=== PATIENT | male | born 1950 | race Caucasian/White ===

== ENCOUNTER → 2019-08-24 10:10 | Outpatient (CLI) | payer MEDICARE, SELFPAY ==
--- NOTE | ~2019-08-24 | CT_ITS ---
EXAMINATION: CT lung screening EXAM DATE: 08/24/2019 10:25 INDICATION: Personal history of nicotine dependence. TECHNIQUE: Spiral low dose CT of the chest without contrast. Axial, coronal and sagittal images were reviewed. The dose-length product (DLP) for this examination was 153.36 mGy-cm. The exposure was t ailored according to patient size (auto mA exposure control), and iterative reconstruction (ASIR) was used as additional dose reduction technique. Comparison is made to prior examination from 06/29/2015. FINDINGS: The lungs are clear. Tracheobronchial tree is patent. There is no mediastinal, hilar o r axillary lymphadenopathy. There are no pleural or pericardial effusions. There is no pneumothor ax. Heart normal in size. There is mild coronary arterial calcification, arterial sclerosis. Uppe r abdomen is unremarkable. There is mild thoracic spondylosis without osteoblastic or osteolytic le sions identified. IMPRESSION: Lung-RADS category 1, negative (<1%chance of malignancy); recommend continued LDCT screen ing in 1 year. Reviewed, dictated and finalized at location B. IMPRESSION: Lung-RADS category 1, negative (<1%chance of malignancy); recommend continued LDCT screening in 1 year.
== END ==
PROVIDERS: PCP Family Medicine Adolescent Medicine; Visit Provider Physician Assistant
DX: Z12.2 Encounter for screening for malignant neoplasm of respiratory organs (principal); F17.210 Nicotine dependence, cigarettes, uncomplicated
CPT/HCPCS: G0297

== ENCOUNTER → 2021-10-20 11:10 | Outpatient (CLI) | payer MEDICARE, SELFPAY ==
--- NOTE | ~2021-10-20 | CT_ITS ---
EXAMINATION: CT lung screening DATE: 10/20/2021 11:24 INDICATION: Personal history of nicotine dependence, prior smoker with 75 pack year history TECHNIQUE: Computed tomography (CT) of the chest was performed without intravenous contrast. The dose -length product (DLP) was 148.58 mGy-cm. 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 COMPARISON: 08/24/2019 FINDINGS: There is mild emphysema. No suspicious pulmonary nodules are identified. The lungs are free of acute opacities. There is no pleural effusion or pneumothorax. No pathologically enlarged thoraci c lymph nodes are identified. The heart size is normal. Calcified coronary artery atherosclerosis is noted. Calcified pulmonary nodules are consistent with old granulomatous disease. Subendocardial fat deposition in the left ventricular apex and interventricular septum suggests prior myocardial infarct ion. Mild thoracic spondylosis is noted. There are healed left rib fractures IMPRESSION: 1. Lung-RADS category 1: Negative. Continue annual screening with noncontrast low-dose chest CT in 12 months. Reviewed, dictated and finalized at location A. IMPRESSION: 1. Lung-RADS category 1: Negative. Continue annual screening with noncontrast l ow-dose chest CT in 12 months.
== END ==
PROVIDERS: PCP Family Medicine Adolescent Medicine; Visit Provider Family Medicine Adolescent Medicine
DX: Z12.2 Encounter for screening for malignant neoplasm of respiratory organs (principal); Z87.891 Personal history of nicotine dependence
CPT/HCPCS: 71271

== ENCOUNTER 2022-06-17 07:56 | Outpatient (CLI) | payer MEDICARE, SELFPAY ==
--- NOTE | ~2022-06-17 | NM_ITS ---
EXAMINATION: NM trina stress w perfusion DATE: 06/17/2022 10:24 INDICATION: Dyspnea on exertion. TECHNIQUE: Rest images were obtained following intravenous administration of 10.6 mCi Tc99m tetrofosm in (Myoview). The patient was infused intravenously with Lexiscan (regadenoson). Then, 33.8 mCi Tc99m tetrofosmin (Myoview) was administered intravenously, and stress images were obtained. Data was lorena nstructed into short axis and horizontal and vertical long axis SPECT images. Gated SPECT images were also obtained. COMPARISON: Chest CT 10/20/2021 FINDINGS: There is no definite reversible or fixed perfusion abnormality to suggest ischemia or infar ction. There is no segmental wall motion abnormality. Left ventricular ejection fraction measures 5 6%. IMPRESSION: 1. No definite ischemia or infarct. 2. Normal left ventricular ejection fraction measuring 56%. Reviewed, dictated and finalized at location A. F CONTRACT OFFICER
--- NOTE | 2022-06-17 08:01 | EST_ITS ---
Patient Info Name: Juan Carlos Vazquez Age: 72 years : 1950 Gender: Male Ht: 67 in Wt: 190 lbs BSA: 2.04 m2 HR: 51 bpm BP: 131 / 79 mmHg Heart Rhythm: Sinus Rhythm Exam Date: 06/17/2022 9:37 AM Exam Location: [facility] Stress Patient Status: Outpatient Admit Date: 06/17/2022 Staff Ordering Physician: Fermín Armenta DO Attending Provider: Fermín Armenta DO Exercise Technologist: Saloni Kay CT Exercise Physician: Fermín Armenta DO Exam Type: CA stress trina w NM Study Info Indications R06.00 - Dyspnea, unspecified A regadenoson stress test was performed. Summary 1. 1. Negative lexiscan stress test for ischemic ST changes by ECG criteria. 2. 2. Stable hemodynamics throughout the test. 3. 3. Nuclear scan to follow and will be reported separately. Please correlate with it. 4. 4. Patient informed of the above results. Protocol: Lexiscan Stress ECG Details Stage: REST Duration (min): 1 min : 26 sec HR (bpm): 52 SBP (mmHg): 131 DBP (mmHg): 79 Stage: REST Duration (min): 6 min : 14 sec HR (bpm): 46 SBP (mmHg): 131 DBP (mmHg): 79 Stage: STAGE 1 Duration (min): 0 min : 59 sec HR (bpm): 67 SBP (mmHg): 119 DBP (mmHg): 76 Stage: RECOVERY Duration (min): 1 min : 0 sec HR (bpm): 92 SBP (mmHg): 119 DBP (mmHg): 76 Stage: RECOVERY Duration (min): 2 min : 0 sec HR (bpm): 93 SBP (mmHg): 119 DBP (mmHg): 76 Stage: RECOVERY Duration (min): 2 min : 55 sec HR (bpm): 86 SBP (mmHg): 122 DBP (mmHg): 63 Rest HR: 46 bpm Peak HR: 101 bpm Rest Sys BP: 131 mmHg Peak Sys BP: 122 mmHg Max Pred HR: 149 bpm % Max Pred HR: 68 % Target HR: 127 bpm Max RPP: 12,322 bpm*mmHg Termination Reason: Completed protocol Cardiac Symptoms: Shortness of breath, Chest tightness Total Time: 1 min : 0 sec Rest Toro BP: 79 mmHg Peak Toro BP: 63 mmHg Total Dose: 0.4 mg Resting ECG Sinus bradycardia, RBBB. Stress ECG No ST changes. Arrhythmias None. Report Signatures
--- NOTE | 2022-06-17 08:01 | ECHO_ITS ---
Patient Info Name: Juan Carlos Vazquez Age: 72 years : 1950 Gender: Male Ht: 67 in Wt: 190 lbs BSA: 2.04 m2 HR: 58 bpm BP: 144 / 78 mmHg Technical Quality: Good Exam Date: 06/17/2022 8:13 AM Exam Location: [facility] Pulmonary Patient Status: Outpatient Admit Date: 06/17/2022 Staff Ordering Physician: Fermín Armenta DO Concrete Conveyor Operator: Lorie Marquez RDCS Attending Provider: Fermín Armenta DO Referring Physician: Geovany GIL; Exam Type: CA echo doppler color flow Study Info Indications R06.09 - Other forms of dyspnea Complete two-dimensional, color flow and Doppler transthoracic echocardiogram is performed. Summary 1. Complete two-dimensional, color flow and Doppler transthoracic echocardiogram is performed. 2. Left ventricular chamber dimension is normal. 3. Left ventricular systolic function is normal, estimated at 55-60%. 4. There is mildly increased left ventricular wall thickness. 5. The left ventricular diastolic function is grade I diastolic dysfunction. 6. Global longitudinal strain is abnormal at -14.1%. Left Ventricle Tissue doppler is not performed. Global longitudinal strain is abnormal at -14.1%. Left ventricular chamber dimension is normal. Left ventricular systolic function is normal, estimated at 55-60%. There is mildly increased left ventricular wall thickness. The left ventricular diastolic function is grade I diastolic dysfunction. Right Ventricle Right ventricular chamber dimension is normal. Right ventricular systolic function is normal. Left Atria Left atrial chamber dimension is normal. Right Atria Right atrial chamber dimension is normal. Aortic Valve The aortic valve is trileaflet. There is no aortic valve stenosis. There is no aortic valve regurgitation. Pulmonic Valve There is no pulmonic regurgitation. Mitral Valve There is no mitral valve stenosis. There is no mitral valve regurgitation. Tricuspid Valve There is no tricuspid valve regurgitation. Pericardium/Pleural There is no pericardial effusion. Inferior Vena Cava Normal inferior vena cava with >50% collapse upon inspiration consistent with normal right atrial pressure, 5 mmHg. Aorta The aortic root size at the sinus of Valsalva is normal. Left Ventricular Outflow Tract Name Value Normal LVOT 2D LVOT Diameter 2.0 cm LVOT Doppler LVOT Peak Gradient 3 mmHg LVOT Mean Gradient 2 mmHg LVOT VTI 21 cm LVOT VTI/AV VTI Ratio 0.9 LVOT Stroke Volume 66 ml LVOT CO 3.2 l/min LVOT CI 1.6 l/min/m2 Pulmonic Valve Name Value Normal RVOT Doppler RVOT Peak Gradient 1 mmHg PV Doppler
== END 2022-06-17 07:57 | disposition home or self-care (01) ==
PROVIDERS: PCP Family Medicine Adolescent Medicine; Visit Provider Internal Medicine Cardiovascular Disease
DX: R06.09 Other forms of dyspnea (principal)
CPT/HCPCS: 78452; 93017; 93306; A9502

== ENCOUNTER 2022-12-28 08:32 | Outpatient (CLI) | payer MEDICARE, SELFPAY | END 2022-12-28 08:33 | disposition home or self-care (01) | LOC: ANHAUDIO 08:32 | PROVIDERS: PCP Family Medicine Adolescent Medicine; Visit Provider Otolaryngology | DX: H90.6 Mixed conductive and sensorineural hearing loss, bilateral (principal); H69.90 Unspecified Eustachian tube disorder, unspecified ear | CPT/HCPCS: 92557; 92567 ==

== ENCOUNTER 2024-12-06 00:05 | Day surgery (SDC) | payer MEDICARE, SELFPAY ==
[2024-11-21 09:26] VITALS: BMI 29.8
--- NOTE | 2024-12-06 07:51 | P.PNAN_ITS ---
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 Patient Data Age: 74 Gender: M Height: 1.7 m Weight: 86.5 kg Allergies Allergy/AdvReac Type Severity Reaction Status Date / Time No Known Allergies Allergy Verified 12/06/24 10:00 Home Medications ?Medication ?Instructions ?Recorded ?Confirmed ?Type atorvastatin 40 mg tablet 40 mg PO DAILY #90 tabs 05/06/24 12/06/24 Rx glipizide 5 mg tablet 5 mg PO DAILY #90 tabs 07/02/24 12/06/24 Rx levothyroxine 75 mcg tablet 75 mcg PO DAILY #90 tabs 09/25/24 12/06/24 Rx (Levoxyl) Patient hx anesthesia problems: none Family hx anesthesia problems: none Results Review: All pre-operative results and documents have been reviewed as part of the pre- operative evaluation. [facility] Past Medical History Medical History (Updated 12/06/24 @ 07:52 by Patrice Plascencia DO) Hypothyroidism Pure hypercholesterolemia, unspecified Type 2 diabetes mellitus without complications (~04/2021) Family History Family History Father COPD (chronic obstructive pulmonary disease) Other Cerebrovascular accident Heart disease Social History Social History Social History: Patient stopped smoking around 2013 but he does use a vape Years smoked: 50 Smoking status: Former smoker Tobacco type: e-cigarettes/vaping Second hand tobacco smoke exposure: No Smoking end date: 06/13/13 Alcohol intake: current Alcohol use details: Socially Substance use: current Substance use type: marijuana Lack of Transportation: No Lack of Food: Never True Current Housing: I Have Housing Concerned About Future Housing: No Difficulty Paying Gas/Electric Bills: No Difficulty Paying for Meds: No Currently Unemployed: No Education: Associate Degree Difficulty w/ Childcare or Family Care: No Living arrangements: with family Occupation/Education: retired Gender identity (if verbalized by the patient): Male Sexual Orientation (if Verbalized by the Patient): Straight or Heterosexual Spiritual care concerns: No Agree to blood products: Yes Anes - Eval Final PreProcedure Day of Procedure 12/06/24 07:51 Patient weight: overweight Heart: regular rate and rhythm Lungs: clear to auscultation Airway: Mallampati scale class II Neurological: alert and oriented Last oral intake: >/= 8 hours ASA classification: III Emergent: no Anesthetic plan: proceed Anesthesia type and monitoring: general GIVS and standard monitoring Results Review: All pre-operative results and documents have been reviewed as part of the pre- operative evaluation. Informed Consent: The patient's anesthetic plan and its attendant risks and benefits were discussed with the patient/family/POA. Questions were solicited and answers provided to the satisfaction of the patient/family/POA.
[2024-12-06 10:01] VITALS: BP 115/66; PULSE 60; RESP 16; TEMP 36.1; O2SAT 97
[2024-12-06] MEDS: LACTATED RINGERS 1,000 ML 150 ML IV CONT (10:12)
[2024-12-06 10:15] LABS: Glucose Point of Care 122 mg/dl (65-105)
--- NOTE | 2024-12-06 11:14 | PM.IMHP ---
H&P: HPI History of Present Illness Date/Time: 12/06/24 11:14 Chief Complaint: Screening colonoscopy Narrative: This is the patient's 2nd colonoscopy. There are no GI symptoms and there is no family history of colorectal cancer. Review of Systems Review of Systems: All systems reviewed & are unremarkable except as noted in HPI and below PMFSH Past Medical History Medical History (Updated 12/06/24 @ 11:15 by Efra Wahl MD) Hypothyroidism Pure hypercholesterolemia, unspecified Type 2 diabetes mellitus without complications (~04/2021) Family History Family History Father COPD (chronic obstructive pulmonary disease) Other Cerebrovascular accident Heart disease Social History Social History Social History: Patient stopped smoking around 2013 but he does use a vape Years smoked: 50 Smoking status: Former smoker Tobacco type: e-cigarettes/vaping Second hand tobacco smoke exposure: No Smoking end date: 06/13/13 Alcohol intake: current Alcohol use details: Socially Substance use: current Substance use type: marijuana Lack of Transportation: No Lack of Food: Never True Current Housing: I Have Housing Concerned About Future Housing: No Difficulty Paying Gas/Electric Bills: No Difficulty Paying for Meds: No Currently Unemployed: No Education: Associate Degree Difficulty w/ Childcare or Family Care: No Living arrangements: with family Occupation/Education: retired Gender identity (if verbalized by the patient): Male Sexual Orientation (if Verbalized by the Patient): Straight or Heterosexual Spiritual care concerns: No Agree to blood products: Yes Meds Home Medications and Allergies Home Medications ?Medication ?Instructions ?Recorded ?Confirmed ?Type atorvastatin 40 mg tablet 40 mg PO DAILY #90 tabs 05/06/24 12/06/24 Rx glipizide 5 mg tablet 5 mg PO DAILY #90 tabs 07/02/24 12/06/24 Rx levothyroxine 75 mcg tablet 75 mcg PO DAILY #90 tabs 09/25/24 12/06/24 Rx (Levoxyl) Allergies Allergy/AdvReac Type Severity Reaction Status Date / Time No Known Allergies Allergy Verified 12/06/24 10:00 Vital Signs Vital Signs - 24 hr 12/06/24 10:01 Temperature 97 F L Pulse Rate 60 Respiratory Rate 16 Blood Pressure 115/66 Pulse Oximetry 97 Oxygen Delivery Room Air Exam Const: General: cooperative and healthy appearing Resp: Effort & Inspection: normal respiratory effort and able to speak in complete sentences Auscultation: clear to auscultation bilaterally Cardio: Rate: regular rate Rhythm: regular rhythm GI: Inspection: normal to inspection GI Palp: No No hepatosplenomegaly present Auscultation: normal bowel sounds Rectal Exam: deferred Skin: General skin exam: normal color Psych: Appearance: grossly normal Mental Status: mental status grossly normal Assessment and Plan Assessment and plan (1) Encounter for screening colonoscopy: Code(s): Z12.11 - Encounter for screening for malignant neoplasm of colon Status: Acute Assessment and Plan: The patient is deemed a good candidate for the procedure. Consent signed. Will proceed.
[2024-12-06 11:33] VITALS: BP 94/57; PULSE 55; RESP 15; O2SAT 95
[2024-12-06 11:43] VITALS: BP 95/55; PULSE 51; RESP 20; O2SAT 95
[2024-12-06 11:53] VITALS: BP 110/55; PULSE 57; RESP 17; O2SAT 98
== END 2024-12-06 12:01 | disposition home or self-care (01) ==
PROVIDERS: PCP Family Medicine Adolescent Medicine; Referring Provider Family Medicine Adolescent Medicine; Visit Provider Internal Medicine Gastroenterology
PROC: 0DJD8ZZ Inspection of Lower Intestinal Tract, Via Natural or Artificial Opening Endoscopic (ICD-10-PCS; CPT 45378; principal; 2024-12-06 11:30)
DX: Z12.11 Encounter for screening for malignant neoplasm of colon (principal); K64.8 Other hemorrhoids; K57.30 Diverticulosis of large intestine without perforation or abscess without bleeding; E03.9 Hypothyroidism, unspecified; E78.00 Pure hypercholesterolemia, unspecified; E11.9 Type 2 diabetes mellitus without complications; F17.290 Nicotine dependence, other tobacco product, uncomplicated; Z79.84 Long term (current) use of oral hypoglycemic drugs; Z82.49 Family history of ischemic heart disease and other diseases of the circulatory system
CPT/HCPCS: G0121; 82948; J2003; J2704; J7120

== ENCOUNTER 2025-05-17 09:45 | Outpatient (CLI) | payer MEDICARE, SELFPAY ==
--- NOTE | ~2025-05-17 | CT_ITS ---
EXAMINATION:CT lung screening DATE: 05/17/2025 09:57 INDICATION: Personal history of nicotine dependence. TECHNIQUE: Computed tomography (CT) of the chest was performed without intravenous contrast. Automated exposure control and iterative reconstruction technique were employed. The dose-length product (DLP) was 132.09 mGy-cm. COMPARISON: Chest CT 10/20/2021 FINDINGS: The lungs demonstrate mild atelectasis. A calcified left lung nodule is consistent with old granulomatous disease. No pleural effusion. The heart size is normal. There are coronary artery calcifications. No pericardial effusion. There are bridging endplate osteophytes at multiple levels in the spine, consistent with diffuse idiopathic skeletal hyperostosis (DISH). There is severe cervical spondylosis and mild thoracic spondylosis. IMPRESSION: 1. Lung-RADS category 1: Negative. Continue annual screening with noncontrast low-dose chest CT in 12 months. Reviewed, dictated and finalized at location E. ITY RN IMPRESSION: 1. Lung-RADS category 1: Negative. Continue annual screening with noncontrast l ow-dose chest CT in 12 months.
== END 2025-05-17 09:46 | disposition home or self-care (01) ==
LOC: MICIMG 09:46
PROVIDERS: PCP Nurse Practitioner Family; Visit Provider Nurse Practitioner Family
DX: Z12.2 Encounter for screening for malignant neoplasm of respiratory organs (principal); Z87.891 Personal history of nicotine dependence
CPT/HCPCS: 71271